=== PATIENT | male | born 1995 | race African-American/Black ===

== ENCOUNTER 2019-04-06 19:18 | Emergency (ER) | payer MEDICAID ==
[~2019-04-06] VITALS: Ht 160 cm; Wt 45.5 kg
[2019-04-06] MEDS ORDERED: PERTUSS(ACELL),DIPH,TET VAC/PF 0.5 ML VIAL IM ONE (20:00)
[2019-04-06] MEDS ORDERED: CYCL10 PO (20:12)
[2019-04-06 21:47] VITALS: BP 148/80
== END 2019-04-06 21:49 | disposition home or self-care (01) ==
LOC: EMS 19:18
DX: S01.81XA Laceration without foreign body of other part of head, initial encounter (principal); F12.90 Cannabis use, unspecified, uncomplicated; Z98.890 Other specified postprocedural states; Z79.899 Other long term (current) drug therapy; W18.39XA Other fall on same level, initial encounter; Y93.89 Activity, other specified; Y92.89 Other specified places as the place of occurrence of the external cause; Y99.8 Other external cause status
CPT/HCPCS: 70450; 90471; 90715